=== PATIENT | female | born 1965 | race Caucasian/White ===

== ENCOUNTER 2016-09-18 05:40 | Observation (INO) | payer BC ==
[2016-09-18] MEDS ORDERED: LIDOCAINE 1% 2 ML INJ ONE (05:47)
[2016-09-18] MEDS ORDERED: ceFAZolin 2 GM/DEXTROSE 100 ML IV ONE (07:00)
[2016-09-18] MEDS ORDERED: SCOPOLAMINE HYDROBROMIDE 1.5 MG PATCH TD ONE ×2 (07:09→07:30)
[2016-09-18] MEDS ORDERED: ROCURONIUM 50 MG/5 ML VIAL ONE (07:09)
[2016-09-18] MEDS ORDERED: PROPOFOL 200 MG/20 ML VIAL ONE (07:09)
[2016-09-18] MEDS ORDERED: fentaNYL 100 MCG/2 ML INJ ONE (07:09)
[2016-09-18] MEDS ORDERED: MIDAZOLAM 2 MG/2 ML VIAL ONE (07:14)
[2016-09-18] MEDS ORDERED: SUGAMMADEX SODIUM 200 MG/2 ML VIAL IVP ONE (07:47)
[2016-09-18] MEDS ORDERED: HYDROmorphONE/DILAUDID 2 MG/ML INJ ONE (08:25)
[2016-09-18] MEDS ORDERED: VASOPRESSIN 20 UNIT/ML VIAL ONE (08:50)
[2016-09-18] MEDS ORDERED: ONDANSETRON 4 MG/2 ML VIAL IVP PRN (11:31)
[2016-09-18] MEDS ORDERED: LR 1,000 ML IV SCH (12:00)
[2016-09-18] MEDS: KETOROLAC 30 MG/1 ML SDV IVP PRN ×2 (12:33→18:55)
--- NOTE | 2016-09-18 12:42 | GOP ---
[f rep st] OPERATIVE REPORT DATE OF OPERATION: 09/18/2016 SURGEON: Jaclyn Kumar MD BIZTALK DEVELOPER: DEWAYNE Sin ANESTHESIA: General with LMA. ANESTHESIOLOGIST: Dr. Brando Vick PREOPERATIVE DIAGNOSIS: 1. Dysfunctional uterine bleeding. 2. Abnormal-appearing uterus, likely adenomyosis. POSTOPERATIVE DIAGNOSIS: 1. Dysfunctional uterine bleeding. 2. Abnormal-appearing uterus, likely adenomyosis. PROCEDURE PERFORMED: Total vaginal hysterectomy with bilateral salpingectomy. FINDINGS: Very large uterus, approximately 14 weeks' size. Normal-appearing ovaries and fallopian tubes, and it did appear that there was endometriosis on the bilateral ovaries. ESTIMATED BLOOD LOSS: 800 cc. INDICATIONS: Patient is a 51-year-old, G 0 who has had problematic bleeding over the last several y ears. She had an ultrasound sonohysterogram done and this showed no filling defect, but a very thic k, boggy uterus. Valvar biopsy also confirmed normal pathology. Patient desires definitive treatme nt. Because she has such an abnormal-appearing uterus consistent with adenomyosis, recommend a hyst erectomy over hysteroscopic ablation. DESCRIPTION OF PROCEDURE: With informed consent signed, patient taken to the operating room, and pl aced under general anesthesia, then placed in the high dorsal lithotomy position, prepped and draped in the usual sterile fashion. Tenaculum placed on the cervix and a posterior colpotomy performed entering the posterior cul-de-sac . The edge of the peritoneum was approximated to the vaginal cuff mucosa initially, but it was very difficult to pull the peritoneum down to the vaginal cuff, so this procedure was terminated and the n an [place] speculum placed into the posterior cul-de-sac. Next, the left uterosacral ligament was clamped, cut, suture ligated. Same was done on the right. The uterus was very full and hard in the lower uterine segment, so it was hard to get good bites on the left side, so several very small bites done to incorporate the cardinal ligament and up into the broad ligament. The same process was done on the right. Eventually, I was able to do an anterior colpotomy and bring the 2 broad ligaments peritoneal edges together. Next, the uterus was inverted and the fundus of the uterus brought out of the introitus, and injected with about 15 cc of dilute P itressin, which is 20 units and 30 cc of saline, and then the fundal aspect of the uterus was morcel lated. Several large pieces of the uterus removed vaginally, and then the bilateral uteroovarian li gaments were clamped, cut, and suture ligated on each side, and then the fallopian tubes on each max e were transected with a Zeferino clamp and then suture ligated. Hemostasis was noted on all pedicles , and then the posterior edge of the vaginal mucosa was approximated to the peritoneal edge for hemo stasis purposes and then the vagina closed with [id number] sutures. Patient placed in supine position, awakened in the operating room, taken to the recovery room in sta ble condition, tolerated the procedure well. Because an initial instrument count was not done, an x -ray was done of the pelvis and no instruments were noted to be in the pelvis or abdomen. COMPLICATIONS: None. Copy requested to: Alisa Chaney [facility] [phone] /[id number]/MODL
[2016-09-18 12:54] VITALS: RESP 16
[2016-09-18] MEDS: traMADol 50 MG TAB PO PRN ×2 (15:19→19:38)
[2016-09-18] MEDS: LORazepam 2 MG/ML INJ IVP PRN (16:47)
[2016-09-19] MEDS: KETOROLAC 30 MG/1 ML SDV IVP PRN ×2 (01:12→06:46)
[2016-09-19] MEDS: traMADol 50 MG TAB PO PRN ×2 (01:27→09:17)
[2016-09-19] MEDS: LORazepam 2 MG/ML INJ IVP PRN (01:28)
[2016-09-19 01:48] LABS: HEMATOCRIT 30.6 % (38.0-47.0); HEMOGLOBIN 10.3 g/dL (12.6-16.3)
[2016-09-19 07:27] VITALS: BP 89/58; PULSE 72; TEMP 99.1; O2SAT 98
--- NOTE | 2016-09-19 10:36 | SOAPPROG ---
SOAP Progress Note Assessment/Plan: Assessment pt is postop day #1 and feeling better, had pain last night as well as anxiety, had catheter removed last night and has voided well. ambulating ok , george regular diet slow bowel function Plan:D/C home , to f/u in 1-2 weeks , d/c meds tramadol 09/19/16 10:33 Subjective: pt feeling better than last night , ate breakfast urinating without problems , pain is better Objective: Vital Signs Temp Pulse Resp BP Pulse Ox 37.3 C 72 16 89/58 L 98 09/19/16 07:27 09/19/16 07:27 09/19/16 07:27 09/19/16 07:27 09/19/16 07:27 Laboratory Results 09/19/16 01:40 09/18/16 09/19/16 09/20/16 05:59 05:59 05:59 Intake Total 2300 Output Total 1800 Balance 500 lungs CTA , abd soft few BS, perineum min bleeding - Pending Discharge Pending Discharge Within 24 Hours: Yes Pending Discharge Date: 09/20/16 Pending Discharge Time: 11:00 Physical Exam - Physical Exam General Appearance: WD/WN ICD10 Worksheet Patient Problems: Problems Problem Status Onset Postop check Acute - ICD10 Problem Qualifiers (1) Postop check
== END 2016-09-19 11:30 | disposition home or self-care (01) ==
LOC: F3E 05:40 → FOB 12:01
PROVIDERS: ADMIT Obstetrics & Gynecology Gynecology; ATTEND Obstetrics & Gynecology Gynecology
PROC: 0UT97ZZ Resection of Uterus, Via Natural or Artificial Opening (ICD-10-PCS; principal; 2016-09-18 07:15)
PROC: 0UT77ZZ Resection of Bilateral Fallopian Tubes, Via Natural or Artificial Opening (ICD-10-PCS; principal; 2016-09-18 07:15)
PROC: 0UTC7ZZ Resection of Cervix, Via Natural or Artificial Opening (ICD-10-PCS; principal; 2016-09-18 07:15)
DX: N93.8 Other specified abnormal uterine and vaginal bleeding (principal)
CPT/HCPCS: 58291; 72170; G0378; J0690; J1170; J1885; J2250; J2405; J2704; J3010